=== PATIENT | female | born 1985 | race African-American/Black ===

== ENCOUNTER 2018-05-13 09:52 | Outpatient (CLI) | payer BC, MEDICAID ==
--- NOTE | 2018-05-13 17:39 | MRI ---
MRI PELVIS WITHOUT CONTRAST: HISTORY: Menorrhagia, N92.0. Posthemorrhagic anemia, D62. COMPARISON: None. TECHNIQUE: An MRI of the pelvis was performed without contrast. FINDINGS: The uterus is enlarged. 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 There is a large mass within the right endometrial fundus, measuring 5.8 x 2.8 x 2.4 cm. Without contrast, it is difficult to fully evalua te, although this has the appearance of an endometrial polyp. Along the right uterine body is what appears to be a 3.3 cm degenerating fibroid. Along the left nehemiah rine body, intramural, there is a 1.8 cm fibroid. Along the anterior uterine body is a 1.4 cm likely degenerating fibroid. Remainder of the intrapelvic soft tissues are unremarkable. BONES: Unremarkable. The large field of view T2 images demonstrate a T2 mildly hyperintense focus within the right lobe of the liver, although this could be artifactual. The background marrow signal is normal. No hydronep hrosis. IMPRESSION: 1. 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 This ami sures 5.8 x 2.8 x 2.4 cm and is likely the source of the patient's problems. Direct visualization is recommended. 2. Multiple uterine fibroids, most of which are intramural. POS: DHAVAL
== END 2018-05-13 09:53 | disposition home or self-care (01) ==
LOC: SCSMRI 09:52
PROVIDERS: ATTEND Obstetrics & Gynecology Reproductive Endocrinology
DX: N92.0 Excessive and frequent menstruation with regular cycle (principal); D62 Acute posthemorrhagic anemia; D25.0 Submucous leiomyoma of uterus; D25.1 Intramural leiomyoma of uterus; D25.9 Leiomyoma of uterus, unspecified
CPT/HCPCS: 72195